=== PATIENT | female | born 1975 | race Two or more races ===

== ENCOUNTER → 2025-02-08 | Outpatient (CLI) | payer OTHER, SELFPAY ==
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
== END | disposition home or self-care (01) ==
LOC: CDIM 11:03
PROVIDERS: PCP Family Medicine; Referring Provider Family Medicine; Visit Provider Family Medicine
DX: M25.562 Pain in left knee (principal); M25.561 Pain in right knee; S89.91XS Unspecified injury of right lower leg, sequela; S89.92XS Unspecified injury of left lower leg, sequela; W19.XXXS Unspecified fall, sequela
CPT/HCPCS: 73565

== ENCOUNTER 2025-07-28 18:28 | Emergency (ER) | payer OTHER, SELFPAY ==
[2025-07-28 18:54] VITALS: BP 135/87; PULSE 92; RESP 18; TEMP 36.9; O2SAT 98; BMI 30.1
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
[2025-07-28] MEDS: HYDROcodone/APAP 5/325 TABLET 1 TAB PO (19:28)
== END 2025-07-28 21:34 | disposition home or self-care (01) ==
PROVIDERS: Emergency Provider Emergency Medicine; PCP Family Medicine
DX: S13.4XXA Sprain of ligaments of cervical spine, initial encounter (principal); S09.90XA Unspecified injury of head, initial encounter; V43.52XA Car driver injured in collision with other type car in traffic accident, initial encounter; Y92.410 Unspecified street and highway as the place of occurrence of the external cause
CPT/HCPCS: 70450; 72125; 72128; 72131; 99282; A9270